=== PATIENT | female | born 1995 | race African-American/Black ===

== ENCOUNTER 2017-07-27 12:34 | Emergency (ER) | payer SELFPAY ==
[~2017-07-27] VITALS: Ht 167.6 cm; Wt 63.5 kg
[~2017-07-27 12:34] MED LIST: METR500T PO
[2017-07-27 12:57] VITALS: BP 120/60
[2017-07-27 13:08] LABS: BILIRUBIN,URINE NEGATIVE (NEG); GLUCOSE,URINE NEGATIVE (NEG); NITRITE,URINE NEGATIVE (NEG); PROTEIN,URINE NEGATIVE (NEG-TRACE)
[2017-07-27 13:16] LABS: BACTERIA,URINE MODERATE /HPF (0-FEW); RBC,URINE OCC /HPF (0-2); SQUAMOUS EPITHELIAL CELL,UR MANY /LPF
[2017-07-27 13:17] LABS: WBC,URINE 20-40 /HPF (0-4)
[2017-07-27] MEDS ORDERED: CEPH500T PO (13:36)
--- NOTE | 2017-07-27 13:36 | PHYS DOC ---
Past Medical History Past Medical History: STD Past Surgical History: No Surgical History Alcohol Use: Occasionally Drug Use: None Adult General Chief Complaint Chief Complaint: PAIN ON URINATION [facility] HPI Patient is a 22 year old female who presents with dysuria for 2 days. Patient denies fever. Denies any nausea vomiting. Denies abdominal pain. Review of Systems Review of Systems Constitutional: Denies fever or chills [] Eyes: Denies change in visual acuity, redness, or eye pain [] HENT: Denies nasal congestion or sore throat [] Respiratory: Denies cough or shortness of breath [] Cardiovascular: No additional information not addressed in HPI [] GI: Denies abdominal pain, nausea, vomiting, bloody stools or diarrhea [] : Dysuria for 2 days Musculoskeletal: Denies back pain or joint pain [] Integument: Denies rash or skin lesions [] Neurologic: Denies headache, focal weakness or sensory changes [] All other systems were reviewed and found to be within normal limits, except as documented in this note. Allergies Allergies Allergies Coded Allergies Type Severity Reaction Last Updated Verified No Known Drug Allergies 12/20/15 No Physical Exam Physical Exam Constitutional: Well developed, well nourished, no acute distress, non-toxic appearance. [] HENT: Normocephalic, atraumatic, bilateral external ears normal, oropharynx moist, no oral exudates, nose normal. [] Eyes: PERRLA, EOMI, conjunctiva normal, no discharge. [] Neck: Normal range of motion, no tenderness, supple, no stridor. [] Cardiovascular:Heart rate regular rhythm, no murmur [] Lungs & Thorax: Bilateral breath sounds clear to auscultation [] Abdomen: Bowel sounds normal, soft, no tenderness, no masses, no pulsatile masses. [] Skin: Warm, dry, no erythema, no rash. [] Back: No tenderness, no CVA tenderness. [] Extremities: No tenderness, no cyanosis, no clubbing, ROM intact, no edema. [] Neurologic: Alert and oriented X 3, normal motor function, normal sensory function, no focal deficits noted. [] Psychologic: Affect normal, judgement normal, mood normal. [] Current Patient Data Vital Signs Vital Signs Date Time Temp Pulse Resp B/P (MAP) Pulse Ox O2 Delivery O2 Flow Rate FiO2 07/27/17 12:57 98.6 70 18 99 Room Air 98.6 Lab Values Laboratory Tests Test 07/27/17 12:51 07/27/17 12:57 Urine Collection Type Void Urine Color Yellow Urine Clarity Cloudy Urine pH 6.0 Urine Specific [place] 1.025 Urine Protein Negative mg/dL (NEG-TRACE) Urine Glucose (UA) Negative mg/dL (NEG) Urine Ketones (Stick) Negative mg/dL (NEG) Urine Blood Negative (NEG) Urine Nitrite Negative (NEG) Urine Bilirubin Negative (NEG) Urine Urobilinogen Dipstick 1.0 mg/dL (0.2 mg/dL) Urine Leukocyte Esterase Moderate (NEG) Urine RBC Occ /HPF (0-2) Urine WBC 20-40 /HPF (0-4) Urine Squamous Epithelial Cells Many /LPF Urine Bacteria Moderate /HPF (0-FEW) Urine Mucus Mod /LPF POC Urine HCG, Qualitative Hcg negative (Negative) EKG EKG [] Radiology/Procedures Radiology/Procedures [] Course & Med Decision Making Course & Med Decision Making Pertinent Labs and Imaging studies reviewed. (See chart for details) Patient is in the ED with dysuria. UA positive for UTI. Discharged with cephalexin. F/u with PcP in 1 week Dragon Disclaimer Dragon Disclaimer This electronic medical record was generated, in whole or in part, using a voice recognition dictation system. Departure Departure Impression: Primary Impression: Urinary tract infection Disposition: 01 HOME, SELF-CARE Condition: STABLE Referrals: NO PCP (PCP) follow up in 1 week with your doctor Patient Instructions: Urinary Tract Infection Additional Instructions: You have urinary tract infection. Take the prescribed antibiotics until completed. Push fluids. Take Tylenol/Motrin for pain or fever. Follow-up with your doctor in 1-2 weeks. Scripts Cephalexin (CEPHALEXIN) 500 Mg Tablet 1 TAB PO BID, #14 TAB Prov: DOMINIQUE CAMPA ATTENDING PHYSICIAN 07/27/17 Problem Qualifiers Primary Impression: Urinary tract infection Urinary tract infection type: site unspecified Hematuria presence: without hematuria Qualified Codes: N39.0 - Urinary tract infection, site not specified KATHERYNDOMINIQUE AARON Jul 27, 2017 13:36
== END 2017-07-27 13:54 | disposition home or self-care (01) ==
LOC: ER 12:34
DX: N39.0 Urinary tract infection, site not specified (principal)
CPT/HCPCS: 81001; 81025; 87086; 87186; 99284

== ENCOUNTER 2017-11-09 07:50 | Emergency (ER) | payer BC ==
[2017-11-09] MEDS: LIDOCAINE WITH 8.4% SOD BICARB 3 ML DISP.SYRIN. INJ (08:18)
[2017-11-09] MEDS: metroNIDAZOLE 500 MG TABLET PO (10:16)
[2017-11-09] MEDS: ONDANSETRON ODT 4 MG TAB.RAPDIS. PO (10:16)
[2017-11-10 15:30] LABS: CHLAMYDIA PROBE Negative (Negative); GC PROBE Negative (Negative)
== END 2017-11-09 10:23 | disposition home or self-care (01) ==
LOC: ER 07:50
DX: N76.0 Acute vaginitis (principal); N76.4 Abscess of vulva
CPT/HCPCS: 56405; 87491; 87591; 99284; Q0111; Q0162

== ENCOUNTER 2018-01-21 09:18 | Emergency (ER) | payer BC ==
[2018-01-21 09:51] LABS: URINE HCG POC HCG NEGATIVE (Negative)
[2018-01-21 09:54] LABS: BILIRUBIN,URINE SMALL (NEG); CLARITY,URINE CLOUDY; COLOR,URINE AMBER; GLUCOSE,URINE NEGATIVE (NEG); NITRITE,URINE NEGATIVE (NEG); PROTEIN,URINE 30 mg/dL (NEG-TRACE)
[2018-01-21 10:06] LABS: RBC,URINE 0 /HPF (0-2)
[2018-01-21 10:07] LABS: BACTERIA,URINE MODERATE /HPF (0-FEW); SQUAMOUS EPITHELIAL CELL,UR MANY /LPF; WBC,URINE RARE /HPF (0-4)
[2018-01-23 14:24] LABS: CHLAMYDIA PROBE Negative (Negative); GC PROBE Negative (Negative)
== END 2018-01-21 10:50 | disposition home or self-care (01) ==
LOC: ER 09:18
DX: N76.0 Acute vaginitis (principal)
CPT/HCPCS: 81001; 81025; 87086; 87491; 87591; 99284; Q0111

== ENCOUNTER 2019-01-16 07:59 | Emergency (ER) | payer BC, SELFPAY ==
[~2019-01-16] VITALS: Ht 172.7 cm; Wt 72.6 kg
[~2019-01-16 07:59] MED LIST changes: +CEPH500T PO; +SULF1TAB24 PO
[2019-01-16 08:05] VITALS: BP 138/70
[2019-01-16] MEDS ORDERED: LIDOCAINE WITH 8.4% SOD BICARB 3 ML DISP.SYRIN. INJ ONE (08:15)
--- NOTE | 2019-01-16 08:16 | PHYS DOC ---
Past Medical History Past Medical History: No Pertinent History, STD Past Surgical History: No Surgical History Alcohol Use: Occasionally Drug Use: Marijuana Adult General Chief Complaint Chief Complaint: ABSCESS HPI HPI Patient is a 23 year old female who presents with an abscess on the right inner buttock cheek that began 5 days ago. Patient states she has been trying to use warm compresses with minimal relief. She states she's had abscesses to this reg ion. Review of Systems Review of Systems Constitutional: Denies fever or chills [] Musculoskeletal: Denies back pain or joint pain [] Integument: Reports right inner buttock abscess Neurologic: Denies headache, focal weakness or sensory changes [] Endocrine: Denies polyuria or polydipsia [] All other systems were reviewed and found to be within normal limits, except as documented in this note. Current Medications Current Medications Current Medications Medications (Trade) Dose Ordered Sig/Shilo Start Time Stop Time Status Last Admin Dose Admin Lidocaine/Sodium Bicarbonate (Buffered Lidocaine 1%) 3 ml 1X ONCE 01/16/19 08:15 01/16/19 08:17 DC 01/16/19 08:31 3 ML Allergies Allergies Allergies Coded Allergies Type Severity Reaction Last Updated Verified No Known Drug Allergies 11/09/17 No Physical Exam Physical Exam Constitutional: Well developed, well nourished, no acute distress, non-toxic appearance. [] Skin: Warm, dry, right inner buttock with an indurated area approximately 3 x 3 cm. The area is warm, tender to touch,erythematous and has slight fluctuance. Back: No tenderness, no CVA tenderness. [] Extremities: No tenderness, no cyanosis, no clubbing, ROM intact, no edema. [] Neurologic: Alert and oriented X 3, normal motor function, normal sensory function, no focal deficits noted. [] Psychologic: Affect normal, judgement normal, mood normal. [] Current Patient Data Vital Signs Vital Signs Date Time Temp Pulse Resp B/P (MAP) Pulse Ox O2 Delivery O2 Flow Rate FiO2 01/16/19 08:05 98.4 90 18 138/70 (92) 99 Room Air 98.4 EKG EKG [] Radiology/Procedures Radiology/Procedures Indication: abscess right buttock Procedure: The patient was positioned appropriately. Local anesthesia was 1% buffered lidocaine. An incision was then made over the apex of the lesion with an 11 blade and a moderate amount of yellow bloody purulent material was expressed. The drainage cavity was irrigated and covered with sterile gauze. The patients tetanus status updated as needed. The patient tolerated the procedure well. Complications: none.[] Course & Med Decision Making Course & Med Decision Making Pertinent Labs and Imaging studies reviewed. (See chart for details) This is a 23-year-old female patient presented to the ED today with an abscess on the right inner buttock. Abscess was drained by me as noted in procedures. Tetanus is up-to-date. Discharged on cephalexin and Bactrim. Follow-up with general surgery and PCP. Chad Disclaimer Dragilya Disclaimer This electronic medical record was generated, in whole or in part, using a voice recognition dictation system. Departure Departure Impression: Primary Impression: Cellulitis and abscess of buttock Disposition: HOME, SELF-CARE Condition: STABLE Referrals: NO PCP (PCP) AHMET SELBY MD follow up in 2 weeks Patient Instructions: Abscess, Cellulitis, [id number] Additional Instructions: You were evaluated in the emergency room for an abscess on your buttock that was drained. Keep the area clean and dry. Follow-up with the provided general surgeon as well as your primary care doctor in 2 weeks. Ensure you complete your antibiotics. Come back to the ED at any point symptoms worsen. Continue applying warm compresses to the area. Scripts Acetaminophen With Codeine (TYLENOL WITH CODEINE #3 TABLET) 1 Each Tablet 1 TAB PO PRN Q6HRS PRN for PAIN, #14 TAB Prov: DOMINIQUE CAMPA APRN 01/16/19 Cephalexin (CEPHALEXIN) 500 Mg Tablet 1 TAB PO QID, #40 TAB Prov: DOMINIQUE CAMPA APRN 01/16/19 Sulfamethoxazole/Trimethoprim (BACTRIM DS TABLET) 1 Each Tablet 1 TAB PO BID, #20 TAB Prov: DOMINIQUE CAMPA ELECTRICAL AND ELECTRONIC ASSEMBLER 01/16/19 DOMINIQUE CAMPA APRN Jan 16, 2019 08:16
[2019-01-16] MEDS ORDERED: CEPH500T PO (08:46)
[2019-01-16] MEDS ORDERED: SULF1TAB24 PO (08:46)
[2019-01-16] MEDS ORDERED: ACET-704 PO (08:46)
== END 2019-01-16 09:00 | disposition home or self-care (01) ==
LOC: ER 07:59
DX: L02.31 Cutaneous abscess of buttock (principal); L03.317 Cellulitis of buttock
CPT/HCPCS: 10060; 99283

== ENCOUNTER → 2019-07-03 | Outpatient (CLI) | payer BC ==
[~2019-07-03] MED LIST changes: +ACET-704 PO
--- NOTE | 2019-07-03 15:28 | RAD ---
EXAM: Pelvic sonogram. HISTORY: Pelvic pain. Dyspareunia. TECHNIQUE: . Transabdominal and transvaginal sonographic imaging of the pelvis was performed. COMPARISON: None. FINDINGS: The uterus measures 8.3 x 3.4 x 4.5 cm. The endometrial stripe measures 4 mm thickness. The ovaries are normal in size and demonstrate normal blood flow. There are small bilateral ovarian follicles. There is no pelvic free fluid. IMPRESSION: Unremarkable pelvic sonogram. Electronically signed by: Latesha Reid MD (07/03/2019 3:25 PM) [place] [id number]
== END | disposition home or self-care (01) ==
LOC: US 13:40
PROVIDERS: ATTEND Obstetrics & Gynecology
DX: N83.8 Other noninflammatory disorders of ovary, fallopian tube and broad ligament (principal); N94.10 Unspecified dyspareunia; R10.2 Pelvic and perineal pain
CPT/HCPCS: 76830; 76856

== ENCOUNTER 2019-09-05 21:59 | Emergency (ER) | payer BC ==
[~2019-09-05] VITALS: Ht 172.7 cm; Wt 75.0 kg
--- NOTE | 2019-09-05 22:48 | PHYS DOC ---
Past Medical History Past Medical History: No Pertinent History, STD (MATTY FLORES APRN) Past Surgical History: No Surgical History (MATTY FLORES APRN) Alcohol Use: None Drug Use: Marijuana (MATTY FLORES APRN) Attending Signature I have participated in the care of this patient and I have reviewed and agree with all pertinent clinical information above including history, exam, and recommendations. (DEEPAK PEÑALOZA MD) Adult General Chief Complaint Chief Complaint: VAGINAL PROBLEM HPI HPI Patient is a 24 year old AA female, coming by her son, who presents to the emergency department with complaints of abnormal vaginal discharge, vaginal itching, vulvar dryness and irritation, and pain with urination for the last few days. Patient states she noted a fishy odor this morning. She denies any abdominal pain, fever, nausea, vomiting, diarrhea, vaginal bleeding, pelvic pain, rash, shortness of breath, or cough. She states she had similar symptoms a few months ago when she was diagnosed with bacterial vaginosis by her ORCHESTRA TEACHER. She denies any known exposure to sexually transmitted infections. She currently denies any pain. All other ROS is neg unless otherwise noted in HPI. (MATTY FLORES APRN) Review of Systems Review of Systems See Above (MATTY FLORES APRN) Current Medications Current Medications Current Medications Medications (Trade) Dose Ordered Sig/Shilo Start Time Stop Time Status Last Admin Dose Admin Azithromycin (Zithromax) 1,000 mg 1X ONCE 09/05/19 23:00 09/05/19 23:01 DC 09/05/19 23:24 1,000 MG Ceftriaxone Sodium (Rocephin Im) 250 mg 1X ONCE 09/05/19 23:00 09/05/19 23:01 DC 09/05/19 23:24 250 MG (DEEPAK PEÑALOZA MD) Allergies Allergies Allergies Coded Allergies Type Severity Reaction Last Updated Verified No Known Drug Allergies 11/09/17 No (DEEPAK PEÑALOZA MD) Physical Exam Physical Exam See Above Constitutional: Well developed, well nourished, no acute distress, non-toxic appearance. HENT: Normocephalic, atraumatic, bilateral external ears normal, nose normal. Eyes: PERRLA, EOMI, conjunctiva normal, no discharge. Neck: Normal range of motion, supple, no stridor. Cardiovascular: Heart rate regular rhythm Lungs & Thorax: Respirations even and unlabored, no retractions, no respiratory distress Pelvic Exam: Welder Pipe Making present Abdomen: Nontender, soft External Genitalia: Dry skin noted to vulva bilaterally Speculum: Normal vaginal mucosa, thick white cervical discharge Bimanual: No adnexal masses or tenderness, No CMT Skin: Warm, dry, no erythema, no rash. Extremities: No ROM intact, no edema. Neurologic: Alert and oriented X 3, no focal deficits noted. Psychologic: Affect normal, judgement normal, mood normal. (MATTY FLORES APRN) Current Patient Data Vital Signs Vital Signs Date Time Temp Pulse Resp B/P (MAP) Pulse Ox O2 Delivery O2 Flow Rate FiO2 09/05/19 23:40 98.2 65 18 127/72 (90) 99 Room Air 98.2 (DEEPAK PEÑALOZA MD) Lab Values Microbiology 09/05/19 Wet Prep - Final, Complete (DEEPAK PEÑALOZA MD) Lab Values Microbiology 09/05/19 Wet Prep - Final, Complete (MATTY FLORES APRN) EKG EKG [] (MATTY FLORES APRN) Radiology/Procedures Radiology/Procedures [] (MATTY FLORES APRN) Course & Med Decision Making Course & Med Decision Making Pertinent Labs and Imaging studies reviewed. (See chart for details) Patient was treated prophylactically with 250 mg of IM Rocephin, and 1 g of PO Zithromax. Patient was instructed to avoid having intercourse until the results of gonorrhea and chlamydia testing are available, patient was notified that these results would not be available for 48 hours. If one or both of these tests is positive, patient needs to refrain from intercourse for approximately 1 week following the treatment of any current partners. [] (MATTY FLORES APRN) Dragon Disclaimer Dragon Disclaimer This electronic medical record was generated, in whole or in part, using a voice recognition dictation system. (MATTY FLORES APRN) Departure Departure Impression: Primary Impression: Bacterial vaginosis Additional Impressions: Concern about STD in female without diagnosis Vulvar dermatitis Disposition: HOME, SELF-CARE Condition: STABLE Referrals: NO PCP (PCP) Patient Instructions: Bacterial Vaginosis, [id number], Sexually Transmitted Disease, [id number] Additional Instructions: Fill the prescription and use as directed. Stop shaving as discussed. Follow up with your ORCHESTRA TEACHER for further evaluation of recurring bacterial vaginosis and vulvar dermatitis. Call tomorrow to arrange follow-up appointment. You have been treated for a suspected gonorrhea and chlamydia. Avoid having intercourse until the results of gonorrhea and chlamydia testing are available, these results will not be available for 48 hours. If one or both of these tests is positive, you need to refrain from intercourse for approximately 1 week following the treatment of any current partners. Follow-up with your primary care doctor if symptoms persist, return to ER symptoms worsen. Scripts Metronidazole (METRONIDAZOLE) 500 Mg Tablet 1 TAB PO BID for 7 Days, #14 TAB 0 Refills Prov: MATTY FLORES APRN 09/05/19 Hydrocortisone Valerate (HYDROCORTISONE VALERATE) 15 Gm Cream..g. 1 SHAISTA TP BID PRN for ITCHING for 7 Days, #30 GM 0 Refills 2% hydrocortisone cream Prov: MATTY FLORES APRN 09/05/19 Problem Qualifiers MATTY FLORES APRN Sep 05, 2019 22:48 DEEPAK PEÑALOZA MD Sep 06, 2019 01:33
[2019-09-05] MEDS ORDERED: AZITHROMYCIN 250 MG TABLET. PO ONE (23:00)
[2019-09-05] MEDS ORDERED: cefTRIAXone IM 250 MG VIAL IM ONE (23:00)
[2019-09-05] MEDS ORDERED: METR-34 PO (23:31)
[2019-09-05] MEDS ORDERED: HYDR15CR20 TP (23:31)
[2019-09-05 23:40] VITALS: BP 127/72
[2019-09-07 20:08] LABS: GC PROBE Negative (Negative)
== END 2019-09-05 23:40 | disposition home or self-care (01) ==
LOC: ER 21:59
DX: N76.0 Acute vaginitis (principal); B96.89 Other specified bacterial agents as the cause of diseases classified elsewhere; L29.2 Pruritus vulvae; R30.9 Painful micturition, unspecified; F12.90 Cannabis use, unspecified, uncomplicated; Z20.2 Contact with and (suspected) exposure to infections with a predominantly sexual mode of transmission
CPT/HCPCS: 87491; 87591; 96372; 99284; J0696; Q0111; Q0144

== ENCOUNTER 2019-10-07 01:49 | Emergency (ER) | payer BC ==
[~2019-10-07] VITALS: Ht 172.7 cm; Wt 75.0 kg
[~2019-10-07 01:49] MED LIST changes: +HYDR15CR20 TP; +METR-34 PO
[2019-10-07 02:05] VITALS: BP 131/80
[2019-10-07] MEDS ORDERED: TRAM-48 PO (02:28)
[2019-10-07] MEDS ORDERED: CEPH-264 PO (02:28)
--- NOTE | 2019-10-07 02:28 | PHYS DOC ---
Past Medical History Past Medical History: STD Additional Past Medical Histor: Pilonidal cyst Past Surgical History: No Surgical History Smoking Status: Never Smoker Alcohol Use: Rarely Drug Use: Marijuana Adult General Chief Complaint Chief Complaint: ABSCESS HPI HPI Patient is a 24 year old female who presents with complaining of pain in "cheek butts". States she has had history of abscess in sacral area for several times and had pain. Bulging area for the last 4 days and started to have drainage of pus yesterday but this stopped draining and she feels a lot of today. Patient denies fever and chills, urinary symptoms, . Patient state she has several episodes of the spontaneous drainage of the cyst and few episode of drainage abscess by incision. Review of Systems Review of Systems Constitutional: Denies fever or chills [] Eyes: Denies change in visual acuity, redness, or eye pain [] HENT: Denies nasal congestion or sore throat [] Respiratory: Denies cough or shortness of breath [] Cardiovascular: No additional information not addressed in HPI [] GI: Denies abdominal pain, nausea, vomiting, bloody stools or diarrhea [] : Denies dysuria or hematuria [] Musculoskeletal: Denies back pain or joint pain [] Integument: Denies rash, reports skin lesions [] Neurologic: Denies headache, focal weakness or sensory changes [] Endocrine: Denies polyuria or polydipsia [] All other systems were reviewed and found to be within normal limits, except as documented in this note. Allergies Allergies Allergies Coded Allergies Type Severity Reaction Last Updated Verified No Known Drug Allergies 11/09/17 No Physical Exam Physical Exam Constitutional: Well developed, well nourished, mild distress, non-toxic appearance. [] HENT: Normocephalic, atraumatic. Eyes: PERRLA, EOMI, conjunctiva normal, no discharge. [] Neck: Normal range of motion, no tenderness, supple, no stridor. [] Cardiovascular:Heart rate regular rhythm, no murmur [] Lungs & Thorax: Bilateral breath sounds clear to auscultation [] Skin: Mild erythema and tenderness of the sacral area without fluctuation or sign of abscess or drainage Back: No tenderness, no CVA tenderness. [] Extremities: No tenderness, no cyanosis, no clubbing, ROM intact, no edema. [] Neurologic: Alert and oriented X 3, no focal deficits noted. [] Psychologic: Affect normal, judgement normal, mood normal. [] Current Patient Data Vital Signs Vital Signs Date Time Temp Pulse Resp B/P (MAP) Pulse Ox O2 Delivery O2 Flow Rate FiO2 10/07/19 02:05 97.5 88 16 131/80 (97) 98 Room Air 97.5 EKG EKG [] Radiology/Procedures Radiology/Procedures [] Course & Med Decision Making Course & Med Decision Making Evaluation of patient in ER showed 24-year-old female patient with recurrent pilonidal cyst infection that was drained spontaneously yesterday patient did not have abscess or drainage of pus tonight and prescription for Keflex and Ultram was given and patient was advised to follow-up with his surgeon for removal of the cyst when it is not infected. Dragon Disclaimer Dragon Disclaimer This electronic medical record was generated, in whole or in part, using a voice recognition dictation system. Departure Departure Impression: Primary Impression: Infected pilonidal cyst Disposition: HOME, SELF-CARE (at 0226) Condition: STABLE Referrals: NO PCP (PCP) Patient Instructions: Pilonidal Cyst Additional Instructions: Drink plenty of liquids Follow-up with your primary care physician in 2-3 days Return to ER if not getting better Apply moist heat pad on the affected area Thank you for visiting [facility]. We appreciate you trusting us with your care. If any additional problems come up don't hesitate to return to visit us. Please follow up with your primary care provider so they can plan additional care if needed and know about the problem that you had. If symptoms worsen come back to the Emergency Department. Any concerning symptoms that start such as chest pain, shortness of air, weakness or numbness on one side of the body, running high fevers or any other concerning symptoms return to the ER. Scripts Tramadol Hcl (ULTRAM) 50 Mg Tablet 50 MG PO Q6HRS PRN for PAIN, #14 TAB 0 Refills Prov: WENDY KATZ MD 10/07/19 Cephalexin (KEFLEX) 500 Mg Capsule 2 CAP PO Q12HR, #40 CAP Prov: WENDY KATZ MD 10/07/19 WENDY KATZ MD Oct 07, 2019 02:28
== END 2019-10-07 02:35 | disposition home or self-care (01) ==
LOC: ER 01:49
DX: L05.91 Pilonidal cyst without abscess (principal); F12.90 Cannabis use, unspecified, uncomplicated
CPT/HCPCS: 99283

== ENCOUNTER → 2020-02-26 | Outpatient (CLI) | payer BC ==
[~2020-02-26] MED LIST changes: +CEPH-264 PO; +IOHEXOL 300 MG/ML 100ML VIAL. INT CAT ONE; +TRAM-48 PO
== END | disposition home or self-care (01) ==
LOC: LAB 14:46
PROVIDERS: ATTEND Obstetrics & Gynecology
DX: N93.9 Abnormal uterine and vaginal bleeding, unspecified (principal)
CPT/HCPCS: 36415; 84702; Q9967

== ENCOUNTER 2020-05-04 14:15 | Emergency (ER) | payer BC ==
[~2020-05-04] VITALS: Ht 172.7 cm; Wt 72.7 kg
[~2020-05-04 14:15] MED LIST changes: -IOHEXOL 300 MG/ML 100ML VIAL. INT CAT ONE
[2020-05-04 15:12] VITALS: BP 122/60
[2020-05-04 15:37] LABS: BILIRUBIN,URINE SMALL (NEG); CLARITY,URINE CLEAR; NITRITE,URINE NEGATIVE (NEG); PROTEIN,URINE 100 mg/dL (NEG-TRACE)
[2020-05-04 15:41] LABS: COLOR,URINE DK YELLOW
[2020-05-04 15:42] LABS: BASO # 0.1 x10^3/uL (0.0-0.2); BASO % 1 % (0-3); EOS # 0.1 x10^3/uL (0.0-0.7); EOS % 1 % (0-3); HEMATOCRIT 42.2 % (36.0-47.0); HEMOGLOBIN 14.3 g/dL (12.0-15.5); LYMPH # 2.1 x10^3/uL (1.0-4.8); LYMPH % 18 % (24-48); MEAN CORPUSCULAR HEMOGLOBIN 33 pg (25-35); MEAN CORPUSCULAR HGB CONC 34 g/dL (31-37); MEAN CORPUSCULAR VOLUME 96 fL (79-100); MONO # 0.6 x10^3/uL (0.0-1.1); MONO % 5 % (0-9); NEUT # 9.1 x10^3/uL (1.8-7.7); NEUT % 76 % (31-73); PLATELET COUNT 298 x10^3/uL (140-400); RED BLOOD COUNT 4.41 x10^6/uL (3.50-5.40); RED CELL DISTRIBUTION WIDTH 12.9 % (11.5-14.5)
[2020-05-04 15:42] LABS: BACTERIA,URINE MANY /HPF (0-FEW); RBC,URINE >40 /HPF (0-2); SQUAMOUS EPITHELIAL CELL,UR MANY /LPF
--- NOTE | 2020-05-04 16:51 | RAD ---
OB ultrasound less than 14 weeks to include transabdominal and transvaginal imaging 05/04/2020 CLINICAL HISTORY: First trimester with vaginal bleeding and cramping. TECHNIQUE: Using the distended urinary bladder as a sonographic window, a real-time ultrasound examination of the pelvis was performed. Additionally in an attempt to better evaluate the uterus and adnexa, a transvaginal ultrasound study was performed. Multiple images were obtained. FINDINGS: A gestational sac is seen within the endometrial canal of the fundus/body of the uterus. This has a mean sac diameter of 1.02 mm. This corresponds to an estimated gestational age by ultrasound of 5 weeks 5 days plus or minus a standard deviation of 6 days. A yolk sac is seen within this gestational sac. No embryonic pole is seen at this time to confirm a living IUP, however. No focal abnormality of the uterus is seen. A 5 mm nabothian cyst is seen involving the cervix. The left ovary is normal in size. It measures 2.7 x 1.6 x 1.4 cm in size. The right ovary measures 3.5 x 2.1 x 1.8 cm in size. A 2 cm corpus luteum is seen within the right ovary. A small amount of free fluid is seen within the pelvic cul-de-sac. IMPRESSION: Findings are seen consistent most likely with a very early IUP (estimated gestational age by ultrasound of 5 weeks 5 days plus or minus a standard deviation of 6 days) as discussed above. Electronically signed by: Quinn Saez MD (05/04/2020 4:48 PM) [id number]
--- NOTE | 2020-05-04 17:13 | PHYS DOC ---
Past Medical History Past Medical History: STD Additional Past Medical Histor: Pilonidal cyst Past Surgical History: No Surgical History Smoking Status: Never Smoker Alcohol Use: Rarely Drug Use: Marijuana General Adult EDM: Chief Complaint: VAGINAL BLEEDING HPI: HPI: Patient is a 25 year old AA female who presents emergency department with complaints of mild abdominal cramping and passing a blood clot from her vagina today. Patient states that she is currently . She is 2, para 1. Patient reports her last menstrual cycle was on March 192019, she is unsure what her due date is. Patient states she is a patient of Dr. Nima Mckeon. She also complains of some mild low back pain. Patient denies any fever, cough, nausea, vomiting, diarrhea, dysuria, hematuria, or increased urinary frequency. She denies any irregular vaginal discharge prior to the start of the past blood clot today. Currently, she rates her pain a 4 out of 10 on the pain scale, she denies any alleviating or exacerbating factors. Review of Systems: Review of Systems: Constitutional: Denies fever or chills. [] HENT: Denies nasal congestion or sore throat. [] Respiratory: Denies cough or shortness of breath. [] GI: Denies nausea, vomiting, or diarrhea; see HPI. [] : Denies dysuria; see HPI. [] Musculoskeletal: See HPI Integument: Denies rash. [] Neurologic: Denies headache Psychiatric: Denies depression or anxiety. [] Complete ROS is negative unless otherwise stated in the HPI. Heart Score: Risk Factors: Risk Factors: DM, Current or recent (<one month) smoker, HTN, HLP, family hist ory of CAD, obesity. Risk Scores: Score 0 - 3: 2.5% MACE over next 6 weeks - Discharge Home Score 4 - 6: 20.3% MACE over next 6 weeks - Admit for Clinical Observation Score 7 - 10: 72.7% MACE over next 6 weeks - Early Invasive Strategies Allergies: Allergies: Allergies Coded Allergies Type Severity Reaction Last Updated Verified No Known Drug Allergies 11/09/17 No Physical Exam: PE: Constitutional: Well developed, well nourished, no acute distress, non-toxic appearance. [] HENT: Normocephalic, atraumatic, bilateral external ears normal, nose normal. [] Eyes: PERRLA, EOMI, conjunctiva normal, no discharge. [] Neck: Normal range of motion, no stridor. [] Cardiovascular:Heart rate regular rhythm, no murmur [] Lungs & Thorax: Respirations even and unlabored, no retractions, no respiratory distress Abdomen: soft, no tenderness, no masses, no pulsatile masses. [] Skin: Warm, dry, no erythema, no rash. [] Back: No CVA tenderness. [] Extremities: No cyanosis, ROM intact, no edema. [] Neurologic: Alert and oriented X 3, no focal deficits noted. [] Psychologic: Affect normal, judgement normal, mood normal. [] Current Patient Data: Labs: Laboratory Tests Test 05/04/20 15:25 05/04/20 15:30 Urine Collection Type Unknown Urine Color Dk yellow Urine Clarity Clear Urine pH 6.0 (<5.0-8.0) Urine Specific [place] >=1.030 (1.000-1.030) Urine Protein 100 mg/dL (NEG-TRACE) Urine Glucose (UA) Negative mg/dL (NEG) Urine Ketones (Stick) >=80 mg/dL (NEG) Urine Blood Large (NEG) Urine Nitrite Negative (NEG) Urine Bilirubin Small (NEG) Urine Urobilinogen Dipstick 1.0 mg/dL (0.2 mg/dL) Urine Leukocyte Esterase Small (NEG) Urine RBC >40 /HPF (0-2) Urine WBC 1-4 /HPF (0-4) Urine Squamous Epithelial Cells Many /LPF Urine Bacteria Many /HPF (0-FEW) Urine Mucus Marked /LPF POC Urine HCG, Qualitative Hcg positive (Negative) White Blood Count 12.0 x10^3/uL (4.0-11.0) H Red Blood Count 4.41 x10^6/uL (3.50-5.40) Hemoglobin 14.3 g/dL (12.0-15.5) Hematocrit 42.2 % (36.0-47.0) Mean Corpuscular Volume 96 fL (79-100) Mean Corpuscular Hemoglobin 33 pg (25-35) Mean Corpuscular Hemoglobin Concent 34 g/dL (31-37) Red Cell Distribution Width 12.9 % (11.5-14.5) Platelet Count 298 x10^3/uL (140-400) Neutrophils (%) (Auto) 76 % (31-73) H Lymphocytes (%) (Auto) 18 % (24-48) L Monocytes (%) (Auto) 5 % (0-9) Eosinophils (%) (Auto) 1 % (0-3) Basophils (%) (Auto) 1 % (0-3) Neutrophils # (Auto) 9.1 x10^3/uL (1.8-7.7) H Lymphocytes # (Auto) 2.1 x10^3/uL (1.0-4.8) Monocytes # (Auto) 0.6 x10^3/uL (0.0-1.1) Eosinophils # (Auto) 0.1 x10^3/uL (0.0-0.7) Basophils # (Auto) 0.1 x10^3/uL (0.0-0.2) Maternal Serum HCG Beta Subunit 6396 mIU/mL (0-5) H Laboratory Tests 05/04/20 15:30 Vital Signs: Vital Signs Date Time Temp Pulse Resp B/P (MAP) Pulse Ox O2 Delivery O2 Flow Rate FiO2 05/04/20 15:12 98.1 84 18 122/60 (80) 97 Room Air 98.1 EKG: EKG: [] Radiology/Procedures: Radiology/Procedures: PROCEDURE: OB <14 WKS W/TV OB ultrasound less than 14 weeks to include transabdominal and transvaginal imaging 05/04/2020 CLINICAL HISTORY: First trimester with vaginal bleeding and cramping. TECHNIQUE: Using the distended urinary bladder as a sonographic window, a real-time ultrasound examination of the pelvis was performed. Additionally in an attempt to better evaluate the uterus and adnexa, a transvaginal ultrasound study was performed. Multiple images were obtained. FINDINGS: A gestational sac is seen within the endometrial canal of the fundus/body of the uterus. This has a mean sac diameter of 1.02 mm. This corresponds to an estimated gestational age by ultrasound of 5 weeks 5 days plus or minus a standard deviation of 6 days. A yolk sac is seen within this gestational sac. No embryonic pole is seen at this time to confirm a living IUP, however. No focal abnormality of the uterus is seen. A 5 mm nabothian cyst is seen involving the cervix. The left ovary is normal in size. It measures 2.7 x 1.6 x 1.4 cm in size. The right ovary measures 3.5 x 2.1 x 1.8 cm in size. A 2 cm corpus luteum is seen within the right ovary. A small amount of free fluid is seen within the pelvic cul-de-sac. IMPRESSION: Findings are seen consistent most likely with a very early IUP (estimated gestational age by ultrasound of 5 weeks 5 days plus or minus a standard deviation of 6 days) as discussed above. [] Course & Med Decision Making: Course & Med Decision Making Pertinent Labs and Imaging studies reviewed. (See chart for details) [] Dragon Disclaimer: Dragon Disclaimer: This electronic medical record was generated, in whole or in part, using a voice recognition dictation system. Departure Departure Impression: Primary Impression: Vaginal bleeding affecting early Disposition: 01 HOME, SELF-CARE Condition: STABLE Referrals: NIMA MCKEON Jr, MD (PCP) Patient Instructions: Vaginal Bleeding During , First Trimester Additional Instructions: Your blood type today is A+, the ultrasound revealed an intrauterine that measured 5 weeks 5 days. Your quantitative HCG level is 6396 today, you need to have this level rechecked by Dr. Reynolds office in 2 days. Pelvic rest as discussed until follow up with Dr. Mckeon. Return to the ER if symptoms worsen. Justicifation of Admission Dx: Justifications for Admission: Justification of Admission Dx: N/A MATTY FLORES APRN May 04, 2020 17:13
== END 2020-05-04 17:24 | disposition home or self-care (01) ==
LOC: ER 14:15
DX: O46.91 Antepartum hemorrhage, unspecified, first trimester (principal); M54.5 Low back pain; F12.90 Cannabis use, unspecified, uncomplicated; Z3A.01 Less than 8 weeks gestation of pregnancy
CPT/HCPCS: 36415; 76801; 76817; 81001; 81025; 84702; 85025; 86900; 86901; 87086; 99284

== ENCOUNTER 2020-07-04 20:16 | Emergency (ER) | payer BC ==
[~2020-07-04] VITALS: Ht 172.7 cm; Wt 68.0 kg
[2020-07-05 00:03] LABS: BASO # 0.1 x10^3/uL (0.0-0.2); BASO % 1 % (0-3); EOS # 0.1 x10^3/uL (0.0-0.7); EOS % 1 % (0-3); HEMATOCRIT 38.4 % (36.0-47.0); LYMPH # 2.4 x10^3/uL (1.0-4.8); LYMPH % 17 % (24-48); MEAN CORPUSCULAR HEMOGLOBIN 32 pg (25-35); MEAN CORPUSCULAR HGB CONC 34 g/dL (31-37); MEAN CORPUSCULAR VOLUME 95 fL (79-100); MONO # 0.4 x10^3/uL (0.0-1.1); MONO % 3 % (0-9); NEUT % 79 % (31-73); PLATELET COUNT 269 x10^3/uL (140-400); RED BLOOD COUNT 4.06 x10^6/uL (3.50-5.40); RED CELL DISTRIBUTION WIDTH 13.2 % (11.5-14.5)
[2020-07-05 00:17] LABS: CALCIUM 9.7 mg/dL (8.5-10.1); CREATININE 0.6 mg/dL (0.6-1.0); GFR 145.1; POTASSIUM 3.3 mmol/L (3.5-5.1)
--- NOTE | 2020-07-05 00:21 | PHYS DOC ---
Past Medical History Past Medical History: STD Additional Past Medical Histor: Pilonidal cyst Past Surgical History: No Surgical History Smoking Status: Never Smoker Alcohol Use: None Drug Use: Marijuana General Adult EDM: Chief Complaint: VAGINAL BLEEDING HPI: HPI: Patient is a 25 year old female who is A0 approximately 13 weeks presents with a chief complaint of vaginal bleeding. Patient states sudden onset of vaginal bleeding 1930hrs. States since onset she has filed 1 pad. She denies any associated pelvic pain. Review of Systems: Review of Systems: Constitutional: Denies fever or chills. [] Eyes: Denies change in visual acuity. [] HENT: Denies nasal congestion or sore throat. [] Respiratory: Denies cough or shortness of breath. [] Cardiovascular: Denies chest pain or edema. [] GI: Denies abdominal pain, nausea, vomiting, bloody stools or diarrhea. [] : Denies dysuria. [Positive positive vaginal bleeding] Musculoskeletal: Denies back pain or joint pain. [] Integument: Denies rash. [] Neurologic: Denies headache, focal weakness or sensory changes. [] Endocrine: Denies polyuria or polydipsia. [] Lymphatic: Denies swollen glands. [] Psychiatric: Denies depression or anxiety. [] Heart Score: Risk Factors: Risk Factors: DM, Current or recent (<one month) smoker, HTN, HLP, family history of CAD, obesity. Risk Scores: Score 0 - 3: 2.5% MACE over next 6 weeks - Discharge Home Score 4 - 6: 20.3% MACE over next 6 weeks - Admit for Clinical Observation Score 7 - 10: 72.7% MACE over next 6 weeks - Early Invasive Strategies Allergies: Allergies: Allergies Coded Allergies Type Severity Reaction Last Updated Verified No Known Drug Allergies 11/09/17 No Physical Exam: PE: Constitutional: Well developed, well nourished, no acute distress, non-toxic appearance. [] HENT: Normocephalic, atraumatic, bilateral external ears normal, oropharynx moist, no oral exudates, nose normal. [] Eyes: PERRLA, EOMI, conjunctiva normal, no discharge. [] Neck: Normal range of motion, no tenderness, supple, no stridor. [] Cardiovascular:Heart rate regular rhythm, no murmur [] Lungs & Thorax: Bilateral breath sounds clear to auscultation [] Abdomen: Bowel sounds normal, soft, no tenderness, no masses, no pulsatile masses. [] Skin: Warm, dry, no erythema, no rash. [] Back: No tenderness, no CVA tenderness. [] Extremities: No tenderness, no cyanosis, no clubbing, ROM intact, no edema. [] Neurologic: Alert and oriented X 3, normal motor function, normal sensory function, no focal deficits noted. [] Psychologic: Affect normal, judgement normal, mood normal. [] Current Patient Data: Labs: Laboratory Tests Test 07/04/20 23:46 07/04/20 23:55 POC Urine HCG, Qualitative Hcg positive (Negative) White Blood Count 14.0 x10^3/uL (4.0-11.0) H Red Blood Count 4.06 x10^6/uL (3.50-5.40) Hemoglobin 13.0 g/dL (12.0-15.5) Hematocrit 38.4 % (36.0-47.0) Mean Corpuscular Volume 95 fL (79-100) Mean Corpuscular Hemoglobin 32 pg (25-35) Mean Corpuscular Hemoglobin Concent 34 g/dL (31-37) Red Cell Distribution Width 13.2 % (11.5-14.5) Platelet Count 269 x10^3/uL (140-400) Neutrophils (%) (Auto) 79 % (31-73) H Lymphocytes (%) (Auto) 17 % (24-48) L Monocytes (%) (Auto) 3 % (0-9) Eosinophils (%) (Auto) 1 % (0-3) Basophils (%) (Auto) 1 % (0-3) Neutrophils # (Auto) 11.0 x10^3/uL (1.8-7.7) H Lymphocytes # (Auto) 2.4 x10^3/uL (1.0-4.8) Monocytes # (Auto) 0.4 x10^3/uL (0.0-1.1) Eosinophils # (Auto) 0.1 x10^3/uL (0.0-0.7) Basophils # (Auto) 0.1 x10^3/uL (0.0-0.2) Laboratory Tests 07/04/20 23:55 Vital Signs: Vital Signs Date Time Temp Pulse Resp B/P (MAP) Pulse Ox O2 Delivery O2 Flow Rate FiO2 07/04/20 22:53 68 18 111/70 (84) 99 07/04/20 21:20 97.9 Room Air 97.9 EKG: EKG: [] Radiology/Procedures: Radiology/Procedures: [] Impression: Placenta previa. 2. Single live intrauterine the size by ultrasound is concordant with LMP. 3. There is poor ventilation of structures due to early gestational age and oligohydramnios. There is also an adjacent cystic structure of uncertain etiology. Recommend highway engineering teacher consultation. Course & Med Decision Making: Course & Med Decision Making Pertinent Labs and Imaging studies reviewed. (See chart for details) [] Patient was evaluated for chief complaint. Work-up consisted of laboratory analysis radiologic imaging. Results reviewed and discussed with patient. Patient's hemoglobin stable. Patient's blood type a positive. Ultrasound per radiologist shows placenta previa. Patient is OB is with [facility]. She states her first appointment is July 18. Patient continues to deny any pain. Patient states just use the bathroom and vaginal bleeding has appeared to stop. Patient will be discharged home with instructions to follow-up with her OB. Patient advised to call OB on Tuesday morning to inform OB that she was evaluated in the emergency department and ultrasound shows placenta previa. Chad Disclaimer: Chad Disclaimer: This electronic medical record was generated, in whole or in part, using a voice recognition dictation system. Departure Departure Impression: Primary Impression: Vaginal bleeding affecting early Additional Impressions: Threatened in early Placenta previa in first trimester Disposition: 01 DC HOME SELF CARE/HOMELESS Condition: STABLE Referrals: UNKNOWN PCP NAME (PCP) Patient Instructions: - Placenta Previa, Threatened Miscarriage AIDEE WARREN I DO Jul 05, 2020 00:21
[2020-07-05 00:23] LABS: ALBUMIN 3.1 g/dL (3.4-5.0); ALBUMIN/GLOBULIN RATIO 0.6 (1.0-1.7); TOTAL BILIRUBIN 0.4 mg/dL (0.2-1.0)
--- NOTE | 2020-07-05 01:41 | RAD ---
OB ultrasound greater than 14 weeks HISTORY: Vaginal bleeding Sonographic examination of the was performed by transabdominal technique and multiple static images were obtained. There is a single live intrauterine . The heartbeat is confirmed at 155 beats per minute. The LMP of 03/19/2020 corresponds with 15 week 3 day gestational age. This may size by ultrasound 15 weeks 1 day The measurements are as follows: BPD 2.6 cm 14 weeks 3 days Head circumference: 10.0 cm 14 weeks 4 days Abdominal circumference: 14 cm 19 weeks 4 days Femur length 1.3 cm 13 weeks 6 days Visualization of structures is limited this early gestational age however there is also poor visualization due to low amniotic fluid. The placenta covers the cervix. There is an anechoic structure that measures 4.4 x 4.2 x 3.9 cm. IMPRESSION: 1. Placenta previa. 2. Single live intrauterine the size by ultrasound is concordant with LMP. 3. There is poor ventilation of structures due to early gestational age and oligohydramnios. There is also an adjacent cystic structure of uncertain etiology. Recommend highway research engineer consultation. Electronically signed by: Severo Crocker III, MD (07/05/2020 1:39 AM) [facility]
[2020-07-05 02:05] VITALS: BP 115/68
== END 2020-07-05 02:07 | disposition home or self-care (01) ==
LOC: ER 20:16
DX: O20.0 Threatened abortion (principal); O44.02 Complete placenta previa NOS or without hemorrhage, second trimester; Z3A.14 14 weeks gestation of pregnancy
CPT/HCPCS: 36415; 76805; 80053; 81025; 84702; 85025; 99285-25

== ENCOUNTER 2021-03-23 21:13 | Emergency (ER) | payer SELFPAY | END 2021-03-23 22:35 | disposition left against medical advice (07) | LOC: ER 21:13 | DX: R20.0 Anesthesia of skin (principal); Z53.21 Procedure and treatment not carried out due to patient leaving prior to being seen by health care provider ==

== ENCOUNTER 2021-03-28 08:16 | Emergency (ER) | payer SELFPAY ==
[~2021-03-28] VITALS: Ht 172.7 cm; Wt 66.9 kg
[2021-03-28 08:22] VITALS: BP 119/68
[2021-03-28] MEDS ORDERED: VALA10008 PO ×2 (08:41→09:37)
[2021-03-28] MEDS ORDERED: PRED50TA PO ×2 (08:41→09:37)
--- NOTE | 2021-03-28 08:42 | PHYS DOC ---
Past Medical History Past Medical History: STD Additional Past Medical Histor: Pilonidal cyst Past Surgical History: Other Additional Past Surgical Histo: D&C Smoking Status: Never Smoker Alcohol Use: None Drug Use: Marijuana General Adult EDM: Chief Complaint: FACE PROBLEM HPI: HPI: Patient is a 26 year old female without pertinent past medical history who presents with 8 days of right-sided facial droop. Has remained constant. She had hoped that it would improve on its own, so did not seek medical care. She has not had any double vision, slurred speech, upper/lower extremity weakness. She has not had any rashes. No travel. No tick bites or exposures. No history of herpes. No ear fullness or pain. Review of Systems: Review of Systems: Constitutional: Denies fever or chills. [] Eyes: Denies change in visual acuity. [] HENT: Denies nasal congestion or sore throat. [] Respiratory: Denies cough or shortness of breath. [] Cardiovascular: Denies chest pain or edema. [] GI: Denies abdominal pain, nausea, vomiting, bloody stools or diarrhea. [] : Denies dysuria. [] Musculoskeletal: Denies back pain or joint pain. [] Integument: Denies rash. [] Neurologic: +Right-sided facial droop. Denies headache, extremity weakness or sensory changes. [] Endocrine: Denies polyuria or polydipsia. [] Lymphatic: Denies swollen glands. [] Psychiatric: Denies depression or anxiety. [] Heart Score: C/O Chest Pain: N/A Risk Factors: Risk Factors: DM, Current or recent (<one month) smoker, HTN, HLP, family history of CAD, obesity. Risk Scores: Score 0 - 3: 2.5% MACE over next 6 weeks - Discharge Home Score 4 - 6: 20.3% MACE over next 6 weeks - Admit for Clinical Observation Score 7 - 10: 72.7% MACE over next 6 weeks - Early Invasive Strategies Allergies: Allergies: Allergies Coded Allergies Type Severity Reaction Last Updated Verified No Known Drug Allergies 03/28/21 No Physical Exam: PE: Constitutional: Well developed, well nourished, no acute distress, non-toxic appearance. [] HENT: Bilateral TMs normal. No evidence of rash in external auditory canals [] Eyes: PERRLA, EOMI, conjunctiva normal, no discharge. [] Neck: Normal range of motion, no tenderness, supple, no stridor. [] Cardiovascular:Heart rate regular rhythm, no murmur [] Lungs & Thorax: Bilateral breath sounds clear to auscultation [] Abdomen: Bowel sounds normal, soft, no tenderness, no masses, no pulsatile masses. [] Skin: Warm, dry, no erythema, no rash. [] Back: No tenderness, no CVA tenderness. [] Extremities: No tenderness, no cyanosis, no clubbing, ROM intact, no edema. [] Neurologic: Alert, oriented x3. Speech normal. Obvious right-sided facial droop including the right forehead. Cannot completely close her right eye lid. Cranial nerves otherwise intact. EOMs normal. 5/5 strength in upper and lower extremities. No dysmetria. [] Psychologic: Affect normal, judgement normal, mood normal. [] Current Patient Data: Vital Signs: Vital Signs Date Time Temp Pulse Resp B/P (MAP) Pulse Ox O2 Delivery O2 Flow Rate FiO2 03/28/21 08:22 99.0 93 16 119/68 (84) 99 Room Air 99.0 EKG: EKG: [] Radiology/Procedures: Radiology/Procedures: [] Course & Med Decision Making: Course & Med Decision Making Pertinent Labs and Imaging studies reviewed. 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 Clear forehead involvement indicating peripheral process rather than stroke. No history of herpes or current outbreak. TMs are clear. Did not have any tick exposures or travel to the [facility] to indicate Lyme disease is a risk She was provided with instructions on keeping her right eye taped shut at night, and moisturizing drops to be used throughout the day. We will prescribe 1 week of prednisone and valacyclovir. Saloon Disclaimer: Chad Disclaimer: This electronic medical record was generated, in whole or in part, using a voice recognition dictation system. Departure Departure Impression: Primary Impression: Horowitz's palsy Disposition: HOME / SELF CARE / HOMELESS Condition: STABLE Referrals: NO PCP (PCP) Patient Instructions: Horowitz's Palsy Additional Instructions: Will be important to use eyedrops in your right eye frequently throughout the day and tape your eye shut during the night, until you can fully close your eye while blinking/sleeping. Please take the antiviral medication (valacyclovir) and steroid (prednisone) for full course of 1 week. This may take several weeks to even months to improve. Scripts Prednisone (PREDNISONE) 50 Mg Tablet 1 TAB PO DAILY for BELLS PALSY for 7 Days, #7 TAB Prov: MILADIS OCONNOR MD 03/28/21 Valacyclovir Hcl (VALACYCLOVIR) 1,000 Mg Tablet 1000 MG PO TID for BELLS PALSY for 7 Days, #21 TAB Prov: MILADIS OCONNOR MD 03/28/21 Prednisone (PREDNISONE) 50 Mg Tablet 1 TAB PO DAILY for 7 Days, #7 TAB 0 Refills Prov: MILADIS OCONNOR MD 03/28/21 Valacyclovir Hcl (VALACYCLOVIR) 1,000 Mg Tablet 1 TAB PO TID for Horowitz's palsy for 7 Days, #21 TAB Prov: MILADIS OCONNOR MD 03/28/21 MILADIS OCONNOR MD Mar 28, 2021 08:42
== END 2021-03-28 08:45 | disposition home or self-care (01) ==
LOC: ER 08:16
DX: G51.0 Bell's palsy (principal)
CPT/HCPCS: 99283